=== PATIENT | male | born 2000 | race Hispanic/Latino ===

== ENCOUNTER 2018-05-15 17:49 | Emergency (ER) | payer SELFPAY ==
[2018-05-15] MEDS ORDERED: ONDANSETRON ODT 8 MG TAB ONE (18:24)
[2018-05-15] MEDS ORDERED: IBUPROFEN 200 MG TAB ONE (18:24)
[2018-05-15] MEDS ORDERED: IBUPROFEN 200 MG TAB PO ONE (18:27)
[2018-05-15] MEDS ORDERED: ONDANSETRON ODT 8 MG TAB SL ONE (18:27)
[2018-05-15] MEDS ORDERED: SODIUM CHLORIDE 0.9% 1000ML 1,000 ML IVS ONE (18:37)
[2018-05-15] MEDS ORDERED: OSELTAMIVIR 75 MG CAP PO ONE (19:16)
--- NOTE | 2018-05-15 19:45 | ED.PDOC ---
History of Present Illness - General Chief Complaint: Fever Stated Complaint: fever, nlv Time Seen by Provider: 05/15/18 18:33 Source: patient Exam Limitations: no limitations - History of Present Illness Initial Comments: the patient's a 17-year-old male presenting to the emergency room secondary to poorly 4 hours of symptoms of sore throat headache body aches nausea and vomit ing and generalized weakness. He has been exposed to the flu. His abdomen is sore from throwing up. No syncope. No altered mental status. Timing/Duration: 24 hours Severity: moderate Improving Factors: nothing Worsening Factors: nothing Associated Symptoms: cough, fever/chills, headaches, loss of appetite, malaise, nausea/vomiting, weakness Allergies/Adverse Reactions: Allergies NO KNOWN ALLERGY Allergy (Verified 05/15/18 18:27) Home Medications: Ambulatory Orders Ondansetron [Zofran Odt] 4 mg PO Q4H PRN #10 tab 05/15/18 Oseltamivir Capsule [Tamiflu] 75 mg PO BID 5 Days #10 capsule 05/15/18 Review of Systems - Review of Systems Constitutional: States: chills, diaphoresis, fever, malaise, weakness EENTM: States: nose congestion, throat pain Respiratory: States: cough Cardiology: States: no symptoms reported Gastrointestinal/Abdominal: States: abdominal pain, nausea, vomiting Musculoskeletal: States: other - generalized myalgias Skin: States: no symptoms reported Neurological: States: headache Endocrine: States: no symptoms reported All other Systems: No Change from Baseline Past Medical History (General) - Patient Medical History Hx Asthma: No Hx Hypertension: No Surgical History: no surgical history - Vaccination History Hx Tetanus, Diphtheria Vaccination: Yes Hx Influenza Vaccination: No Hx Pneumococcal Vaccination: No Immunizations Up to Date: No - Social History Hx Tobacco Use: No Hx Alcohol Use: Yes - occ Hx Substance Use: No Hx Substance Use Treatment: No Hx Depression: No Family Medical History - Family History Mother Family History: No Known Physical Exam - Physical Exam General Appearance: Alert, Ill Appearing Eye Exam: bilateral normal Ears, Nose, Throat: hearing grossly normal, nasal congestion, pharyngeal erythema Neck: full range of motion, supple Respiratory: lungs clear, normal breath sounds, no respiratory distress, no accessory muscle use Cardiovascular/Chest: normal peripheral pulses, no edema, tachycardia Peripheral Pulses: radial,right: 2+, radial,left: 2+, dorsalis pedis,right: 2+, dorsalis pedis,left: 2+ Gastrointestinal/Abdominal: soft, other - diffusely uncomfortable to palpationfrom vomiting. No palpable mass. No point tenderness. 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 He has tested negative for strep. He is to keep himself well-hydrated. He can use Motrin 600 mg every 8 hours for the next day or 2 with food to help reduce symptoms. He'll be written for Zofran to control any nausea or vomiting as needed. ER warnings were given for any significant worsening. He did receive a liter of IV fluids here for dehydration. He can take [id number] Pepcid twice daily to help reduce stomach irritation. Keep follow-up with primary care doctor in coming weeks. Departure - Departure Clinical Impression: Influenza A Disposition: Discharge to Home or Self Care Condition: Fair Departure Forms: ED Discharge - Pt. Copy, Patient Portal Self Enrollment Instructions: Flu, Adult (DC) Diet: bland diet Activity: increase activity as tolerated Prescriptions: Ondansetron [Zofran Odt] 4 mg PO Q4H PRN #10 tab PRN Reason: Vomiting Oseltamivir Capsule [Tamiflu] 75 mg PO BID 5 Days #10 capsule Home Medications: Ambulatory Orders Ondansetron [Zofran Odt] 4 mg PO Q4H PRN #10 tab 05/15/18 Oseltamivir Capsule [Tamiflu] 75 mg PO BID 5 Days #10 capsule 05/15/18 Additional Instructions: the patient's a 17-year-old male that has influenza A. He has tested negative for strep. He is to keep himself well-hydrated. He can use Motrin 600 mg every 8 hours for the next day or 2 with food to help reduce symptoms. He'll be written for Zofran to control any nausea or vomiting as needed. ER warnings were given for any significant worsening. He did receive a liter of IV fluids here for dehydration. He can take [id number] Pepcid twice daily to help reduce stomach irritation. Keep follow-up with primary care doctor in coming weeks.
[2018-05-15 19:58] VITALS: O2SAT 95
[2018-05-15 20:06] VITALS: BP 134/78; TEMP 103.5
== END 2018-05-15 20:07 | disposition home or self-care (01) ==
LOC: ER 17:49
DX: J10.1 Influenza due to other identified influenza virus with other respiratory manifestations (principal)
CPT/HCPCS: 87070; 87502; 87880; J7030

== ENCOUNTER 2019-01-26 08:45 | Emergency (ER) | payer SELFPAY ==
[2019-01-26] MEDS ORDERED: predniSONE 20 MG TAB PO ONE (09:03)
[2019-01-26] MEDS ORDERED: KETOROLAC TROMETHAMINE INJ 30 MG/ML VIAL IM ONE (09:03)
--- NOTE | 2019-01-26 09:06 | ED.PDOC ---
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 He did not fall. He did have some pain immediately however over the following 2 days he has had increasing muscle spasms and some mild sciatica down both legs. He has apparently had some low back issues2 years ago. He has done well since that time until now.no fever. Exam shows no evidence of any step-off. No bruising. He does have palpable muscle spasm adjacent to L2-L5 bilaterally. Pain is a little worse on the right. No crepitus. No palpable mass. Timing/Duration: getting worse, other - 2 days Severity: moderate Improving Factors: nothing Worsening Factors: movement Associated Symptoms: denies symptoms Allergies/Adverse Reactions: Allergies Penicillins Allergy (Verified 01/26/19 09:06) Home Medications: Ambulatory Orders Cyclobenzaprine HCl [Flexeril] 5 mg PO TID PRN #30 tab 01/26/19 Tramadol HCl 50 mg PO Q8HR PRN #20 tab 01/26/19 predniSONE [Prednisone] 20 mg PO DAILY #3 tab 01/26/19 Review of Systems - Review of Systems Constitutional: States: no symptoms reported EENTM: States: no symptoms reported Respiratory: States: no symptoms reported Cardiology: States: no symptoms reported Gastrointestinal/Abdominal: States: no symptoms reported Genitourinary: States: no symptoms reported Musculoskeletal: States: see HPI, back pain Skin: States: no symptoms reported Neurological: States: see HPI All other Systems: No Change from Baseline Past Medical History (General) - Patient Medical History Hx Asthma: No Hx Hypertension: No - Vaccination History Hx Tetanus, Diphtheria Vaccination: Yes Hx Influenza Vaccination: No Hx Pneumococcal Vaccination: No - Social History Hx Tobacco Use: No Hx Alcohol Use: Yes - occ Hx Substance Use: No Hx Substance Use Treatment: No Hx Depression: No Family Medical History - Family History Mother Family History: No Known Father Living Status: Still Living Hx Family Diabetes: Yes Physical Exam - Physical Exam General Appearance: Alert, No apparent distress Eye Exam: bilateral normal Ears, Nose, Throat: hearing grossly normal, normal ENT inspection Neck: full range of motion, supple Respiratory: lungs clear, normal breath sounds, no respiratory distress, no accessory muscle use Cardiovascular/Chest: normal peripheral pulses, no edema, other - regular rate Peripheral Pulses: radial,right: 2+, radial,left: 2+, dorsalis pedis,right: 2+, dorsalis pedis,left: 2+ Gastrointestinal/Abdominal: non tender, soft Rectal Exam: deferred Back Exam: CVA tenderness (R), CVA tenderness (L), muscle spasm - see history of present illness, vertebral tenderness Extremity: non-tender, normal inspection, no pedal edema, no calf tenderness, normal capillary refill 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 X-ray of the lumbar spine is reassuring. The patient is being dosed with prednisone, Toradol and Flexeril here. He will be continued on another 3 days of prednisone as an anti-inflammatory. He can also use Motrin or Aleve as needed to reduce discomfort. Topical heat in the form of icy hot or Biofreeze or heat pad may also prove beneficial. He'll also be written for Flexeril for as needed use as a muscle relaxer and tramadol for as needed use for additional pain control if needed. He does need to be careful as the latter 2 medications can cause some drowsiness. He does need to do stretching exercises for his low back to help reduce muscle spasm. ER warnings were given. Follow-up with primary care doctor early next week. He does need to take at least a couple of days off from work. nicole whitaker [phone] - Results/Orders Results/Orders: x-ray of the lumbar spine shows some very mild wedging of the T12 vertebra. This is actually higher than where he is having pain. This is most likely a chronic finding. Mild levoscoliosis. No obvious acute pathology otherwise. Departure - Departure Clinical Impression: Acute myofascial strain of lumbar region Qualifiers: Encounter type: initial encounter Qualified Code(s): S39.012A - Strain of muscle, fascia and tendon of lower back, initial encounter Disposition: Discharge to Home or Self Care Condition: Fair Departure Forms: ED Discharge - Pt. Copy, Patient Portal Self Enrollment Instructions: DI for Back Pain With Sciatica Diet: regular diet Activity: increase activity as tolerated Prescriptions: Tramadol HCl 50 mg PO Q8HR PRN #20 tab PRN Reason: Moderate Pain Cyclobenzaprine HCl [Flexeril] 5 mg PO TID PRN #30 tab PRN Reason: Muscle Spasms predniSONE [Prednisone] 20 mg PO DAILY #3 tab Home Medications: Ambulatory Orders Cyclobenzaprine HCl [Flexeril] 5 mg PO TID PRN #30 tab 01/26/19 Tramadol HCl 50 mg PO Q8HR PRN #20 tab 01/26/19 predniSONE [Prednisone] 20 mg PO DAILY #3 tab 01/26/19 Additional Instructions: the patient's a 18-year-old male presenting to emergency room approximately 48 hours after sustaining mild to moderate blunt trauma to his low back while at work. X-ray of the lumbar spine is reassuring. The patient is being dosed with prednisone, Toradol and Flexeril here. He will be continued on another 3 days of prednisone as an anti-inflammatory. He can also use Motrin or Aleve as needed to reduce discomfort. Topical heat in the form of icy hot or Biofreeze or heat pad may also prove beneficial. He'll also be written for Flexeril for as needed use as a muscle relaxer and tramadol for as needed use for additional pain control if needed. He does need to be careful as the latter 2 medications can cause some drowsiness. He does need to do stretching exercises for his low back to help reduce muscle spasm. ER warnings were given. Follow-up with primary care doctor early next week. He does need to take at least a couple of days off from work. obviously if symptoms are worsening or failing to improve then repeat or additional evaluation may become warranted.
--- NOTE | 2019-01-26 09:51 | RAD ---
EXAM DESCRIPTION: Lumbar Spine 3 Views CLINICAL HISTORY: 18 yearsMale, low back pain 2 days after mild trauma COMPARISON: None. IMPRESSION: 9 degrees of levoconvex curvature in the mid lumbar spine. Very mild anterior wedging of T12 and L1. This may be developmental, but age-indeterminate fractures may have a similar appearance. Correlate for point tenderness and consider follow-up MRI if indicated. Remaining lumbar vertebral body stature is maintained. Intervertebral disc heights are preserved. No significant degenerative changes. Electronically signed by: Pascual Mcknight MD 01/26/2019 9:49 AM CDT
[2019-01-26] MEDS ORDERED: CYCLOBENZAPRINE HCL 10 MG TAB PO ONE (10:01)
[2019-01-26 10:07] VITALS: BP 150/96; TEMP 97.5; O2SAT 100
== END 2019-01-26 10:15 | disposition home or self-care (01) ==
LOC: ER 08:45
DX: S39.012A Strain of muscle, fascia and tendon of lower back, initial encounter (principal); W22.09XA Striking against other stationary object, initial encounter; Y99.0 Civilian activity done for income or pay; Y92.69 Other specified industrial and construction area as the place of occurrence of the external cause; Z88.0 Allergy status to penicillin
CPT/HCPCS: 72100; J1885; J7512

== ENCOUNTER 2019-05-12 11:19 | Emergency (ER) | payer SELFPAY ==
[2019-05-12] MEDS: SODIUM CHLORIDE 0.9% (FLUSH) 10 ML SYG IV PRN (12:25)
[2019-05-12] MEDS: SODIUM CHLORIDE 0.9% 1000ML 1,000 ML IVS ONE (12:25)
--- NOTE | 2019-05-12 12:29 | RAD ---
EXAM: XR Chest, 1 View CLINICAL HISTORY: throat swelling, trouble swallowing TECHNIQUE: Frontal view of the chest. COMPARISON: No relevant prior studies available. FINDINGS: Lungs: Unremarkable. No consolidation. Pleural space: Unremarkable. No pneumothorax. Heart: Unremarkable. No cardiomegaly. Mediastinum: Unremarkable. Bones/joints: Unremarkable. IMPRESSION: No abnormality noted. Electronically signed by: Faith Valenzuela MD 05/12/2019 12:28 PM GENERAL PRACTITIONER
--- NOTE | 2019-05-12 12:48 | ED.PDOC ---
History of Present Illness - General Chief Complaint: ENT Problem Stated Complaint: Sore throat Time Seen by Provider: 05/12/19 11:52 Source: patient - History of Present Illness Initial Comments: 18 yo male who presents with cc of tonsillar swelling. Onset 5 days ago and gradually worsening. At its worst yesterday/last night and slightly improved since then. Denies any pain but reports some trouble swallowing - was able to eat 4 donut holes today and drinking fluids well. States his tonsils are both very swollen and red when he looked in the mirror today. Nothing tried at home for relief. Denies any hoarse voice, fevers/chills, abd pain, n/v/d, neck pain, or other sx's. Has had strep infection in the past a couple times but has been a couple years since last infection. Allergies/Adverse Reactions: Allergies Penicillins Allergy (Verified 01/26/19 09:06) Home Medications: Ambulatory Orders Cyclobenzaprine HCl [Flexeril] 5 mg PO TID PRN #30 tab 01/26/19 Tramadol HCl 50 mg PO Q8HR PRN #20 tab 01/26/19 predniSONE [Prednisone] 20 mg PO DAILY #3 tab 01/26/19 Clindamycin HCl 300 mg PO QID 7 Days #28 cap 05/12/19 Prednisone 60 mg PO DAILY 5 Days #15 tab 05/12/19 Review of Systems - Review of Systems Review of Systems: 05/12/19 12:48 as per HPI All other Systems: Reviewed and Negative Past Medical History (General) - Patient Medical History Hx Stroke: No Hx Asthma: No Hx of COPD: No Hx Cardiac Disorders: No Hx Hypertension: No Hx Diabetes: No Hx Cancer: No - Vaccination History Hx Tetanus, Diphtheria Vaccination: Yes Hx Influenza Vaccination: No Hx Pneumococcal Vaccination: No - Social History Hx Tobacco Use: No Hx Alcohol Use: Yes - occ Hx Substance Use: No Hx Substance Use Treatment: No Hx Depression: No - Female History Patient : No Family Medical History - Family History Mother Family History: No Known Living Status: Still Living Father Living Status: Still Living Hx Family Diabetes: Yes Physical Exam - Physical Exam General Appearance: Alert, Comfortable, No apparent distress Eye Exam: bilateral normal Ears, Nose, Throat: hearing grossly normal, tonsillar swelling - 4+ swollen tonsils BL with moderate erythema, no plaques/exudates, no peritonsillar abscess, able to speak and swallow normally Neck: non-tender, full range of motion, supple, normal inspection Respiratory: lungs clear, normal breath sounds, no respiratory distress, no accessory muscle use Cardiovascular/Chest: normal peripheral pulses, regular rate, rhythm, no edema, no gallop, no murmur Peripheral Pulses: radial,right: 2+, radial,left: 2+ Gastrointestinal/Abdominal: non tender, soft, no organomegaly Back Exam: normal inspection, no CVA tenderness, no vertebral tenderness Extremity: normal range of motion, non-tender, normal inspection, no pedal edema, no calf tenderness 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 No focal abscesses seem apparent. Pt maintaining airway and able to swallow -check flu, strep, mono, CBC, BMP 05/12/19 13:56 -Pt has remained stable, no further swelling, tolerating PO fluids without issue. Flu, strep, mono all negative. CXR clear. CBC & CMP wnl. -Given degree of tonsillar swelling, concern still for bacterial infection. As pt is PCN-allergic, will give clindamycin 300 mg PO QID x7 days, first dose here. Will also give Decadron 8 mg IV in ED and Rx prednisone 60 mg PO x5 days. Advised close PCP f/u. Return warnings discussed for worsening throat swelling, trouble swallowing, hoarse voice, etc... -dc home in fair condition Stephen Mena MD Billing #[id number] 05/12/19 11:52 IV Care:Saline Lock per Protoc QSHIFT Telemetry .ONCE Sodium Chloride 0.9% (Flush) [Saline Flush Syringe] 10 ml IV PRN PRN 05/12/19 12:06 STREP A SCREEN CULTURE Stat 05/13/19 09:00 Pulse Ox Daily Laboratory Results - last 24 hr 05/12/19 05/12/19 05/12/19 12:06 12:16 12:16 WBC 5.2 RBC 4.90 Hgb 15.3 Hct 44.3 MCV 90.3 MCH 31.2 H MCHC 34.5 RDW 13.0 Plt Count 271 MPV 7.9 Absolute Neuts (auto) 2.80 Absolute Lymphs (auto) 1.60 Absolute Monos (auto) 0.70 Absolute Eos (auto) 0.00 Absolute Basos (auto) 0.00 Neutrophils % 54.3 Lymphocytes % 30.7 Monocytes % 13.3 H Eosinophils % 0.9 L Basophils % 0.8 Sodium 138 Potassium 4.2 Chloride 101 Carbon Dioxide 30 Anion Gap 11.2 L BUN 11 Creatinine 0.73 BUN/Creatinine Ratio 15.1 Random Glucose 80 Serum Osmolality 274.1 L Lactic Acid Calcium 9.9 Total Bilirubin 0.5 AST 20 ALT 21 Alkaline Phosphatase 75 Serum Total Protein 8.1 Albumin 4.3 Globulin 3.8 H Albumin/Globulin Ratio 1.1 Monoscreen Group A Strep Rapid Negative 05/12/19 05/12/19 12:16 12:50 WBC RBC Hgb Hct MCV MCH MCHC RDW Plt Count MPV Absolute Neuts (auto) Absolute Lymphs (auto) Absolute Monos (auto) Absolute Eos (auto) Absolute Basos (auto) Neutrophils % Lymphocytes % Monocytes % Eosinophils % Basophils % Sodium Potassium Chloride Carbon Dioxide Anion Gap BUN Creatinine BUN/Creatinine Ratio Random Glucose Serum Osmolality Lactic Acid 0.8 Calcium Total Bilirubin AST ALT Alkaline Phosphatase Serum Total Protein Albumin Globulin Albumin/Globulin Ratio Monoscreen Negative Group A Strep Rapid Departure - Departure Clinical Impression: Acute tonsillitis Qualifiers: Pharyngitis/tonsillitis etiology: unspecified etiology Qualified Code(s): J03.90 - Acute tonsillitis, unspecified Time of Disposition: 13:51 Disposition: Discharge to Home or Self Care Condition: Fair Departure Forms: ED Discharge - Pt. Copy, Patient Portal Self Enrollment Instructions: Sore Throat, Adult (DC) Diet: other - mechanical soft diet Prescriptions: Clindamycin HCl 300 mg PO QID 7 Days #28 cap Prednisone 60 mg PO DAILY 5 Days #15 tab Home Medications: Ambulatory Orders Cyclobenzaprine HCl [Flexeril] 5 mg PO TID PRN #30 tab 01/26/19 Tramadol HCl 50 mg PO Q8HR PRN #20 tab 01/26/19 predniSONE [Prednisone] 20 mg PO DAILY #3 tab 01/26/19 Clindamycin HCl 300 mg PO QID 7 Days #28 cap 05/12/19 Prednisone 60 mg PO DAILY 5 Days #15 tab 05/12/19 Additional Instructions: Take the antibiotics and steroids as prescribed. Continue also ibuprofen 600 mg every 6 hours and Tylenol 650 mg every 6 hours as needed for pain or swelling. Return if swelling worsens or if you develop trouble swallowing, hoarse voice, trouble breathing, or other concerning symptoms as discussed. Follow up with your primary care doctor in 5-7 days for repeat evaluation is recommended.
[2019-05-12] MEDS: CLINDAMYCIN HCL CAP 150 MG CAP PO ONE (14:03)
[2019-05-12] MEDS: DEXAMETHASONE INJ 4 MG/ML VIAL IV ONE (14:03)
[2019-05-12 14:16] VITALS: BP 144/89; TEMP 97.6; O2SAT 99
== END 2019-05-12 14:10 | disposition home or self-care (01) ==
LOC: ER 11:19
DX: J03.90 Acute tonsillitis, unspecified (principal); Z88.0 Allergy status to penicillin
CPT/HCPCS: 36415; 71045; 80053; 83605; 85025; 86403; 87070; 87502; 87880; J1100; J7030

== ENCOUNTER 2019-07-11 02:46 | Emergency (ER) | payer SELFPAY ==
[2019-07-11] MEDS ORDERED: SODIUM CHLORIDE 0.9% (FLUSH) 10 ML SYG IV PRN (02:51)
[2019-07-11] MEDS ORDERED: SUCCINYLCHOLINE CHLORIDE 200 MG/10 ML VIAL ONE (02:57)
[2019-07-11] MEDS ORDERED: SODIUM CHLORIDE 0.9% 1000ML 1,000 ML IVS ONE (03:00)
[2019-07-11] MEDS ORDERED: VECURONIUM BROMIDE 10 MG VIAL IV ONE (03:07)
[2019-07-11] MEDS ORDERED: ETOMIDATE INJECTION 2 MG/ML 20ML VIAL IV ONE (03:07)
[2019-07-11] MEDS ORDERED: WATER FOR INJ 10 ML VIAL INJ ONE (03:07)
[2019-07-11] MEDS ORDERED: diazePAM INJ 10 MG/2 ML SYG IV ONE (03:35)
--- NOTE | 2019-07-11 03:40 | ED.PDOC ---
History of Present Illness - General Chief Complaint: Unresponsive Stated Complaint: possible OD, unresponsive Time Seen by Provider: 07/11/19 02:51 Source: patient, RN notes reviewed, Vital Signs reviewed, EMS notes reviewed, family - Mother and brother Exam Limitations: clinical condition, intoxication - History of Present Illness Initial Comments: Patient is a 18-year-old male brought in by EMS secondary to an attempted overdose and altered mental status. Patient was minimally responsive and would ramble on and give us bits and pieces of what happened over the last 8 hours and then would become unconscious. He would then wake up and talk to us again for a moment or two. Patient became more obtunded and eventually his respiratory rate dropped below 8 and had no gag reflex. Per the patient he was planning to move out of town today and his ex-girlfriend came over. She gave him half a Xanax because he was so upset. He said the Xanax made him very relax ed and mellow. Patient then stated that he took some other pills but he does not know the name of them. History of present illness and review of systems was severely limited secondary to patient's intoxication and obtundation. Family was able to provide very little collateral information. Timing/Duration: unsure Severity: severe Improving Factors: nothing Worsening Factors: nothing Allergies/Adverse Reactions: Allergies Penicillins Allergy (Verified 01/26/19 09:06) Home Medications: Ambulatory Orders Cyclobenzaprine HCl [Flexeril] 5 mg PO TID PRN #30 tab 01/26/19 Tramadol HCl 50 mg PO Q8HR PRN #20 tab 01/26/19 predniSONE [Prednisone] 20 mg PO DAILY #3 tab 01/26/19 Clindamycin HCl 300 mg PO QID 7 Days #28 cap 05/12/19 Prednisone 60 mg PO DAILY 5 Days #15 tab 05/12/19 Review of Systems - Review of Systems Review of Systems: 07/11/19 03:40 Unable to obtain a review of systems secondary to patient's intoxication and obtundation. Past Medical History (General) - Patient Medical History Hx Stroke: No Hx Asthma: No Hx of COPD: No Hx Cardiac Disorders: No Hx Hypertension: No Hx Diabetes: No Hx Cancer: No - Vaccination History Hx Tetanus, Diphtheria Vaccination: Yes Hx Influenza Vaccination: No Hx Pneumococcal Vaccination: No - Social History Hx Tobacco Use: No Hx Alcohol Use: Yes - occ Hx Substance Use: No Hx Substance Use Treatment: No Hx Depression: No - Female History Patient : No Family Medical History - Family History Mother Family History: No Known Living Status: Still Living Father Living Status: Still Living Hx Family Diabetes: Yes Physical Exam - Physical Exam General Appearance: Lethargic, Obvious distress, Well Developed, Well Groomed, Well Nourished Eye Exam: bilateral abnormal pupil - Pupils dilated at 6 mm somewhat responsive to light. Ears, Nose, Throat: hearing grossly normal, normal ENT inspection, normal pharynx - Except for dry mucous membranes. Neck: full range of motion, supple, normal inspection Respiratory: chest non-tender, respiratory distress - Significantly reduced respiratory rate. Patient with long apneic pauses. Due to his diminishing GCS and difficulty breathing decision was made to intubate the patient. Please see intubation note., rhonchi - Diffusely throughout Cardiovascular/Chest: normal peripheral pulses, no edema, no gallop, no murmur, tachycardia Peripheral Pulses: radial,right: 2+, radial,left: 2+ Gastrointestinal/Abdominal: normal bowel sounds, non tender, soft Back Exam: normal inspection, no vertebral tenderness Extremity: normal range of motion, non-tender, normal inspection, other - Patient with edema and swelling in the right AC after injection of 10 mL's of etomidate for intubation as well as 10 mL's of normal saline. It appears that the IV infiltrated. This is an IV that had been placed by EMS. Neurologic: depressed affect, other - Oriented to self only.Patient with generalized weakness. Skin Exam: normal color, other - Patient cool and clammy to touch Lymphatic: other - Patient with submandibular lymphadenopathy. Progress - Progress Progress: Differential diagnosis: Suicide attempt, depression, drug overdose, hypothermia due to exposure among others. 07/11/19 04:56 Patient with respiratory failure on arrival. Patient obtunded and necessitated emergent intubation. Lab work relatively unremarkable except for urine drug screen positive for opioids, benzos and THC. Plan transfer to [facility] for further evaluation and treatment. Patient was accepted to the ED by Dr. Zamorano. I discussed this with the mother who voices understanding and agreement with the plan of care. Sarath Shanks M.D. #[id number] - Results/Orders Results/Orders: EXAM DESCRIPTION: X-ray single view chest. CLINICAL HISTORY: 18 years Male, resp arrest, et placement COMPARISON: 05/12/2019 TECHNIQUE: Single portable x-ray view of the chest performed on 07/11/2019 at 3:21 AM FINDINGS: The lungs are well expanded and are clear. There is no evidence of a pneumothorax. The cardiac silhouette is normal in size and configuration. The mediastinal contours are normal. No acute osseous abnormality is identified. No focal soft tissue abnormalities are seen. Lines and tubes: The tip of the endotracheal tube terminates at the level of the clavicular heads. The feeding tube tip projects over the left upper quadrant in the region of the stomach. The proximal sidehole is also seen in the left upper quadrant. IMPRESSION: 1. No evidence of acute intrathoracic disease. 2. The tip of the endotracheal tube terminates at the level of the clavicular heads. 3. The feeding tube is grossly in satisfactory position. Electronically signed by: April King DO 07/11/2019 3:36 AM EKG performed 11 July 2019 at 0335 hrs.: Normal sinus rhythm 100 bpm, normal axis deviation, no ST or T wave changes, normal EKG. No comparison EKG available. 07/11/19 02:51 Sodium Chloride 0.9% (Flush) [Saline Flush Syringe] 10 ml IV PRN PRN 07/11/19 02:52 IV Care:Saline Lock per Protoc QSHIFT Telemetry Q4H EKG Assessment ONCE 07/11/19 03:00 EKG STAT Laboratory Results - last 24 hr 07/11/19 07/11/19 07/11/19 03:15 03:15 03:15 WBC 7.3 RBC 5.06 Hgb 15.9 Hct 46.4 MCV 91.7 MCH 31.5 H MCHC 34.3 RDW 13.9 Plt Count 230 MPV 8.9 Absolute Neuts (auto) 4.60 Absolute Lymphs (auto) 2.00 Absolute Monos (auto) 0.60 Absolute Eos (auto) 0.10 Absolute Basos (auto) 0.00 Neutrophils % 63.2 Lymphocytes % 27.5 Monocytes % 8.2 Eosinophils % 0.7 L Basophils % 0.4 PT 11.1 H INR 1.12 PTT (SP) 24.8 pCO2 pO2 HCO3 ABG pH ABG O2 Saturation ABG Base Excess ABG Deoxyhemoglobin Oxyhemoglobin % Carboxyhemoglobin % Methemoglobin % Sat Calc Total Hemoglobin Sodium 139 Potassium 4.1 Chloride 104 Carbon Dioxide 28 Anion Gap 11.1 L BUN 11 Creatinine 0.84 BUN/Creatinine Ratio 13.1 Random Glucose 93 Serum Osmolality 276.6 Calcium 9.5 Total Bilirubin 0.7 AST 17 ALT 11 Alkaline Phosphatase 45 L Creatine Kinase 71 CK-MB (CK-2) 0.9 CK-MB (CK-2) % Not Reportable Troponin I < 0.02 Serum Total Protein 8.0 Albumin 4.8 Globulin 3.2 Albumin/Globulin Ratio 1.5 Urine Color Urine Appearance Urine pH Ur Specific Chromo Urine Protein Urine Glucose (UA) Urine Ketones Urine Blood Urine Nitrite Urine Bilirubin Urine Urobilinogen Ur Leukocyte Esterase Urine RBC Urine WBC Ur Epithelial Cells Urine Bacteria Salicylates Urine Opiates Screen Acetaminophen < 10.0 L Urine Barbiturates Ur Phencyclidine Scrn U Amphetamin/Meth Scrn U Benzodiazepines Scrn U Cocaine Metab Screen U Cannabinoids Screen Ethyl Alcohol 07/11/19 07/11/19 07/11/19 03:15 03:35 03:42 WBC RBC Hgb Hct MCV MCH MCHC RDW Plt Count MPV Absolute Neuts (auto) Absolute Lymphs (auto) Absolute Monos (auto) Absolute Eos (auto) Absolute Basos (auto) Neutrophils % Lymphocytes % Monocytes % Eosinophils % Basophils % PT INR PTT (SP) pCO2 30 L pO2 277 H* HCO3 21.6 ABG pH 7.462 H ABG O2 Saturation 100.1 H ABG Base Excess -1.1 ABG Deoxyhemoglobin -0.1 L Oxyhemoglobin % 99.1 H Carboxyhemoglobin % 0.4 L Methemoglobin % Sat 0.6 Calc Total Hemoglobin 15.4 Sodium Potassium Chloride Carbon Dioxide Anion Gap BUN Creatinine BUN/Creatinine Ratio Random Glucose Serum Osmolality Calcium Total Bilirubin AST ALT Alkaline Phosphatase Creatine Kinase CK-MB (CK-2) CK-MB (CK-2) % Troponin I Serum Total Protein Albumin Globulin Albumin/Globulin Ratio Urine Color Urine Appearance Urine pH Ur Specific Chromo Urine Protein Urine Glucose (UA) Urine Ketones Urine Blood Urine Nitrite Urine Bilirubin Urine Urobilinogen Ur Leukocyte Esterase Urine RBC Urine WBC Ur Epithelial Cells Urine Bacteria Salicylates Urine Opiates Screen Positive H Acetaminophen Urine Barbiturates Negative Ur Phencyclidine Scrn Negative U Amphetamin/Meth Scrn Negative U Benzodiazepines Scrn Positive H U Cocaine Metab Screen Negative U Cannabinoids Screen Positive H Ethyl Alcohol < 5.40 07/11/19 03:42 WBC RBC Hgb Hct MCV MCH MCHC RDW Plt Count MPV Absolute Neuts (auto) Absolute Lymphs (auto) Absolute Monos (auto) Absolute Eos (auto) Absolute Basos (auto) Neutrophils % Lymphocytes % Monocytes % Eosinophils % Basophils % PT INR PTT (SP) pCO2 pO2 HCO3 ABG pH ABG O2 Saturation ABG Base Excess ABG Deoxyhemoglobin Oxyhemoglobin % Carboxyhemoglobin % Methemoglobin % Sat Calc Total Hemoglobin Sodium Potassium Chloride Carbon Dioxide Anion Gap BUN Creatinine BUN/Creatinine Ratio Random Glucose Serum Osmolality Calcium Total Bilirubin AST ALT Alkaline Phosphatase Creatine Kinase CK-MB (CK-2) CK-MB (CK-2) % Troponin I Serum Total Protein Albumin Globulin Albumin/Globulin Ratio Urine Color Straw Urine Appearance Clear Urine pH 6.5 Ur Specific Chromo 1.010 Urine Protein Negative Urine Glucose (UA) Negative Urine Ketones Trace Urine Blood Negative Urine Nitrite Negative Urine Bilirubin Negative Urine Urobilinogen 0.2 Ur Leukocyte Esterase Negative Urine RBC 0 Urine WBC 0 Ur Epithelial Cells 0 Urine Bacteria 0 Salicylates Urine Opiates Screen Acetaminophen Urine Barbiturates Ur Phencyclidine Scrn U Amphetamin/Meth Scrn U Benzodiazepines Scrn U Cocaine Metab Screen U Cannabinoids Screen Ethyl Alcohol Procedures - Intubation Time of Intubation: 03:20 Intubation Method: orotracheal Tube Size (cm): 7.5 Medications: Succinylcholine Breath Sounds after Intubation: equal Post Intubation Xray: Yes - Endotracheal tube in place with the tip of the endotracheal tube approximat Progress/Xray Impression: Patient was intubated to secure his airway and provide appropriate respirat Departure - Departure Clinical Impression: Suicide attempt Drug overdose, intentional Qualifiers: Encounter type: initial encounter Qualified Code(s): T50.902A - Poisoning by unspecified drugs, medicaments and biological substances, intentional self-harm, initial encounter Respiratory failure Qualifiers: Chronicity: acute Respiratory failure complication: unspecified whether with hypoxia or hypercapnia Qualified Code(s): J96.00 - Acute respiratory failure, unspecified whether with hypoxia or hypercapnia Time of Disposition: 04:30 Disposition: Transfer to Hospital Condition: Poor Departure Forms: ED Discharge - Pt. Copy, Patient Portal Self Enrollment Home Medications: Ambulatory Orders Cyclobenzaprine HCl [Flexeril] 5 mg PO TID PRN #30 tab 01/26/19 Tramadol HCl 50 mg PO Q8HR PRN #20 tab 01/26/19 predniSONE [Prednisone] 20 mg PO DAILY #3 tab 01/26/19 Clindamycin HCl 300 mg PO QID 7 Days #28 cap 05/12/19 Prednisone 60 mg PO DAILY 5 Days #15 tab 05/12/19 Critical Care Note - Critical Care Note Total Time (mins): 80 - This critical care time does not include any procedures that were performed. Transfer to Outside Facility - Transfer Information Decision to Transfer Date: 07/11/19 Decision to Transfer Time: 04:00 Reason for Transfer: ICU Accepting Provider:: Dr. Huff Accepting Facility: [facility]
[2019-07-11] MEDS ORDERED: SODIUM CHLORIDE 0.9% 1000ML 1,000 ML ONE (03:54)
[2019-07-11] MEDS ORDERED: ROCURONIUM BROMIDE 10 MG/ML VIAL ONE ×2 (04:04→05:07)
[2019-07-11] MEDS ORDERED: ROCURONIUM BROMIDE 10 MG/ML VIAL IV ONE (04:05)
[2019-07-11] MEDS ORDERED: MIDAZOLAM INJ 5 MG/5 ML VIAL IV ONE (04:07)
[2019-07-11] MEDS ORDERED: PROPOFOL 200 MG/20 ML VIAL IV ONE (04:19)
[2019-07-11] MEDS ORDERED: DEXTROSE 5% 250ML 250 ML ONE (04:29)
[2019-07-11] MEDS ORDERED: DEXTROSE 5% 100ML 100 ML IVPB ONE (04:33)
[2019-07-11 04:55] VITALS: O2SAT 100
[2019-07-11 05:16] VITALS: BP 139/90; TEMP 98.1
[2019-07-11] MEDS ORDERED: SODIUM CHLORIDE 0.9% 1000ML 1,000 ML IVS PRN (06:37)
== END 2019-07-11 05:40 | disposition short-term general hospital (02) ==
LOC: ER 02:46
DX: T50.902A Poisoning by unspecified drugs, medicaments and biological substances, intentional self-harm, initial encounter (principal); J96.00 Acute respiratory failure, unspecified whether with hypoxia or hypercapnia; F11.90 Opioid use, unspecified, uncomplicated; F13.90 Sedative, hypnotic, or anxiolytic use, unspecified, uncomplicated; F12.90 Cannabis use, unspecified, uncomplicated; Z88.0 Allergy status to penicillin
CPT/HCPCS: 31500; 36415; 36600; 71045; 80053; 80307; 80320; 80329; 81001; 82550; 82553; 82803; 82805; 84484; 85025; 85610; 85730; 93005; 94002; 94770; J0330; J3360; J3490; J7030; J7060

== ENCOUNTER → 2019-07-25 | Outpatient (CLI) | payer OTHER | LOC: YCFC.O 13:07 | PROVIDERS: ATTEND Family Medicine | DX: I82.90 Acute embolism and thrombosis of unspecified vein (principal) ==

== ENCOUNTER → 2019-07-27 | Outpatient (CLI) | payer OTHER | LOC: YCFC.O 08:12 | PROVIDERS: ATTEND Family Medicine | DX: I82.90 Acute embolism and thrombosis of unspecified vein (principal) ==

== ENCOUNTER → 2019-08-01 | Outpatient (CLI) | payer OTHER | LOC: LAB.O 11:52 | PROVIDERS: ATTEND Family Medicine | DX: I82.90 Acute embolism and thrombosis of unspecified vein (principal) ==

== ENCOUNTER → 2019-08-06 | Outpatient (CLI) | payer OTHER | LOC: YCFC.O 16:38 | PROVIDERS: ATTEND Family Medicine | DX: I82.90 Acute embolism and thrombosis of unspecified vein (principal) ==

== ENCOUNTER 2019-10-10 20:43 | Emergency (ER) | payer SELFPAY ==
[2019-10-10 20:58] VITALS: BP 120/68; TEMP 98.5
[2019-10-10] MEDS ORDERED: KETOROLAC TROMETHAMINE INJ 30 MG/ML VIAL IM ONE (21:08)
--- NOTE | 2019-10-10 21:40 | RAD ---
EXAM DESCRIPTION: Chest,2 Views TECHNIQUE: PA and lateral views of the chest are obtained. CLINICAL HISTORY: Male, 18 years presents with left lower rib pain COMPARISON: Portable chest dated 07/11/2019 FINDINGS: Heart: The heart is normal in size and configuration. Vasculature: There is no evidence of aortic aneurysm or acute findings. The pulmonary vascularity is normal. Mediastinum: No evidence of mass or adenopathy. Lungs: There is no focal consolidation in the lungs. Pleural Spaces: There are no pleural effusions. There are no pneumothoraces. Osseous Structures: There is no evidence of acute fracture, osseous destruction or osteoblastic lesions. Tubes and Catheters: None Upper Abdomen: No acute findings. Chest Wall: Unremarkable. IMPRESSION: No significant [] radiographic abnormalities in the chest. Electronically signed by: Gregoria Perez MD 10/10/2019 9:39 PM CDT
[2019-10-10 21:47] VITALS: O2SAT 98
--- NOTE | 2019-10-10 21:50 | ED.PDOC ---
History of Present Illness - General Chief Complaint: General Stated Complaint: reoccuring rib pain Time Seen by Provider: 10/10/19 20:45 Source: patient Exam Limitations: no limitations - History of Present Illness Initial Comments: The patient is a 18-year-old male presented emergency room secondary to persistent intermittent pleuritic type left lateral chest pain over the last month to 2 months. The patient had apparently reportedly broken a rib over there a month or 2 ago. He reports when the pain comes on he has a difficult time breathing. It is sharp and stabbing and pulling when it comes on. It is usually worse with movement. He does have some discomfort to palpation over the left lateral rib cage. No crepitus. No deformity. No bruising. Timing/Duration: intermittent, other - 1 to 2 months Severity: moderate Improving Factors: immobilization Worsening Factors: movement Associated Symptoms: chest pain Allergies/Adverse Reactions: Allergies Penicillins Allergy (Verified 01/26/19 09:06) Review of Systems - Review of Systems Constitutional: States: no symptoms reported EENTM: States: no symptoms reported Respiratory: States: no symptoms reported Cardiology: States: chest pain Gastrointestinal/Abdominal: States: no symptoms reported Genitourinary: States: no symptoms reported Musculoskeletal: States: no symptoms reported Skin: States: no symptoms reported Neurological: States: no symptoms reported Endocrine: States: no symptoms reported All other Systems: No Change from Baseline Past Medical History (General) - Patient Medical History Hx Seizures: No Hx Stroke: No Hx Dementia: No Hx Asthma: No Hx of COPD: No Hx Cardiac Disorders: No Hx Congestive Heart Failure: No Hx Pacemaker: No Hx Hypertension: No Hx Thyroid Disease: No Hx Diabetes: No Hx Gastroesophageal Reflux: No Hx Renal Disease: No Hx Cancer: No Hx of HIV: No Hx Hepatitis C: No Hx MRSA: No Surgical History: no surgical history - Vaccination History Hx Tetanus, Diphtheria Vaccination: Yes Hx Influenza Vaccination: No Hx Pneumococcal Vaccination: Yes Immunizations Up to Date: Yes - Social History Hx Tobacco Use: Yes Hx Chewing Tobacco Use: No Hx Alcohol Use: Yes Hx Substance Use: Yes - hx of overdose with in 3 months Hx Substance Use Treatment: Yes Hx Depression: No Feels Threatened In Home Enviroment: No Feels Threatened In a Relationship: No Hx Physical Abuse: No Hx Emotional Abuse: No Hx Suspected Abuse: No - Activities of Daily Living Hospice Agency (if applicable):: None - Female History Patient is a Female of Child Bearing Age (10 -59 yrs old): No Patient : No - Triage Comment ED Triage Comment: went back to work today on 10/10/19 and pain reoccured today, Family Medical History - Family History Mother Family History: No Known Living Status: Still Living Father Living Status: Still Living Hx Family Diabetes: Yes Physical Exam - Physical Exam General Appearance: Alert, Comfortable, No apparent distress Eye Exam: bilateral normal Ears, Nose, Throat: hearing grossly normal, normal ENT inspection, normal pharynx Neck: full range of motion, supple Respiratory: lungs clear, normal breath sounds, no respiratory distress, no accessory muscle use, other - Left lateral lower chest wall discomfort to palpation. No crepitus. No deformity. No bruising. 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 Chest x-ray here shows no evidence of any acute lung pathology and no evidence of acute bony pathology. Vital signs are reassuring. The pleuritic type chest pain should improve gradually over the coming months. He does need to continue to take deep breaths, make himself cough and twist turn to help reduce scar tissue formation. He does need to follow back up with his primary care doctor next week. ER warnings are given. He was given a dose of Toradol here. Other pain medications are avoided secondary to his history of deterioration with them in the past. nicole whitaker [id number] Departure - Departure Clinical Impression: Pleurisy Disposition: Discharge to Home or Self Care Condition: Fair Departure Forms: ED Discharge - Pt. Copy, Patient Portal Self Enrollment Instructions: Pleuritic Chest Pain Diet: regular diet Activity: increase activity as tolerated Referrals: Axel Welch MD [Primary Care Provider] - 1-5 Days Additional Instructions: The patient is a 18-year-old male presented emergency room secondary to persistent intermittent left lateral chest pain that is most clinically consistent with pleurisy, likely related to previous trauma. Chest x-ray here shows no evidence of any acute lung pathology and no evidence of acute bony pathology. Vital signs are reassuring. The pleuritic type chest pain should improve gradually over the coming months. He does need to continue to take deep breaths, make himself cough and twist turn to help reduce scar tissue formation. He does need to follow back up with his primary care doctor next week. ER warnings are given. He was given a dose of Toradol here. Other pain medications are avoided secondary to his history of deterioration with them in the past.
== END 2019-10-10 21:58 | disposition home or self-care (01) ==
LOC: ER 20:43
DX: R09.1 Pleurisy (principal); R07.81 Pleurodynia; F17.200 Nicotine dependence, unspecified, uncomplicated
CPT/HCPCS: 71046; J1885

== ENCOUNTER 2019-10-16 13:25 | Emergency (ER) | payer SELFPAY ==
[2019-10-16 13:52] VITALS: O2SAT 99
[2019-10-16] MEDS ORDERED: methylPREDNISolone ACETATE 80 MG/ML VIAL IM ONE (14:15)
[2019-10-16] MEDS ORDERED: diphenhydrAMINE HCL 25 MG CAP PO ONE (14:16)
[2019-10-16] MEDS ORDERED: FAMOTIDINE 20 MG TAB PO ONE (14:22)
--- NOTE | 2019-10-16 14:25 | ED.PDOC ---
History of Present Illness - General Chief Complaint: Skin/Abrasion/Tear Stated Complaint: Painful Rash on arms and chest Time Seen by Provider: 10/16/19 14:02 Source: patient Exam Limitations: no limitations - History of Present Illness Initial Comments: STARTED AFTER YARD WORK. 3 D AGO. ITCHY SKIN. SPREADING. NO RESPIRATORY C/O. SPARING FACE. Timing/Duration: week, getting worse Severity: severe Location: torso, extremities Improving Factors: nothing Worsening Factors: nothing Associated Symptoms: change in skin texture, hives, itching, rash Allergies/Adverse Reactions: Allergies Penicillins Allergy (Verified 01/26/19 09:06) Home Medications: Ambulatory Orders Methylprednisolone [Medrol Dose Juan] 4 mg PO DAILY #1 tab 10/16/19 Triamcinolone 0.5% Cream [Kenalog 0.5% Cream] 15 gm TOP QID PRN #2 tube 10/16/19 Review of Systems - Review of Systems Constitutional: States: no symptoms reported EENTM: States: no symptoms reported Respiratory: Denies: cough, short of breath, stridor, wheezing Cardiology: States: no symptoms reported. Denies: chest pain, palpitations Gastrointestinal/Abdominal: States: no symptoms reported Genitourinary: States: no symptoms reported Musculoskeletal: States: no symptoms reported Skin: States: see HPI, lesions, rash Neurological: States: no symptoms reported Endocrine: States: no symptoms reported Hematologic/Lymphatic: States: no symptoms reported All other Systems: Reviewed and Negative Past Medical History (General) - Patient Medical History Hx Seizures: No Hx Stroke: No Hx Dementia: No Hx Asthma: No Hx of COPD: No Hx Cardiac Disorders: No Hx Congestive Heart Failure: No Hx Pacemaker: No Hx Hypertension: No Hx Thyroid Disease: No Hx Diabetes: No Hx Gastroesophageal Reflux: No Hx Renal Disease: No Hx Cancer: No Hx of HIV: No Hx Hepatitis C: No Hx MRSA: No Surgical History: no surgical history - Vaccination History Hx Tetanus, Diphtheria Vaccination: No Hx Influenza Vaccination: Yes Hx Pneumococcal Vaccination: Yes - Social History Hx Tobacco Use: Yes Hx Chewing Tobacco Use: No Hx Alcohol Use: Yes Hx Substance Use: Yes - hx of overdose Hx Substance Use Treatment: Yes Hx Depression: No Hx Physical Abuse: No Hx Emotional Abuse: No Hx Suspected Abuse: No - Female History Patient : No Family Medical History - Family History Mother Family History: No Known Living Status: Still Living Father Living Status: Still Living Hx Family Diabetes: Yes Physical Exam - Physical Exam General Appearance: Alert, Well Developed Eyes, Ears, Nose, Throat Exam: PERRL/EOMI, normal ENT inspection Neck: non-tender, full range of motion Cardiovascular/Chest: normal peripheral pulses, regular rate, rhythm Respiratory: chest non-tender, lungs clear, normal breath sounds, no respiratory distress, no accessory muscle use Gastrointestinal/Abdominal: normal bowel sounds, non tender Back Exam: no CVA tenderness Extremity: normal range of motion, non-tender Neurologic: alert, normal mood/affect Skin Exam: other - RASH, EXCORIATIONS. Skin Problem Location: upper extremities, torso, lower extremities Skin Character: erythema, macules, rash, urticarial Lymphatic: no adenopathy Progress - Results/Orders Results/Orders: POISON MAUDE/OAK EXPOSURE. STEROIDS, H1, H2 RUBEN. Departure - Departure Clinical Impression: Contact dermatitis due to poison maude Disposition: Discharge to Home or Self Care Condition: Good Departure Forms: ED Discharge - Pt. Copy, Patient Portal Self Enrollment Instructions: Poison Maude Diet: resume usual diet Activity: increase activity as tolerated Referrals: Axel Welch MD [Primary Care Provider] - 1-2 Weeks Prescriptions: Methylprednisolone [Medrol Dose Juan] 4 mg PO DAILY #1 tab Triamcinolone 0.5% Cream [Kenalog 0.5% Cream] 15 gm TOP QID PRN #2 tube PRN Reason: Rash Home Medications: Ambulatory Orders Methylprednisolone [Medrol Dose Juan] 4 mg PO DAILY #1 tab 10/16/19 Triamcinolone 0.5% Cream [Kenalog 0.5% Cream] 15 gm TOP QID PRN #2 tube 10/16/19 Additional Instructions: In addition to the prescriptions, take Benadryl 50 mg pills by mouth twice per day as needed for the itching.
[2019-10-16] MEDS ORDERED: TRIAMCINOLONE 0.5% CREAM 15 GM TUBE TOP SCH (14:30)
[2019-10-16 15:00] VITALS: BP 122/78; TEMP 96.4
== END 2019-10-16 15:04 | disposition home or self-care (01) ==
LOC: ER 13:25
DX: L23.7 Allergic contact dermatitis due to plants, except food (principal)
CPT/HCPCS: J1030; Q0163